=== PATIENT | female | born 1980 | race Caucasian/White ===

== ENCOUNTER 2016-08-05 00:06 | Inpatient (IN) ==
[2016-08-05] MEDS ORDERED: INSULIN REGULAR 100 UNIT/ML IV ONE ×2 (00:21→03:12)
[2016-08-05] MEDS ORDERED: MAGNESIUM SULF RIDER 2 GM in PREMIX 1 EACH IV PRN ×2 (00:21→03:12)
[2016-08-05] MEDS ORDERED: SODIUM CHLORIDE 0.9% 1,000 ML IV ONE ×2 (00:21→03:12)
[2016-08-05] MEDS ORDERED: DEXTROSE 50% 25 GM/50 ML VIAL IV PRN ×4 (00:21→03:12)
[2016-08-05] MEDS ORDERED: POTASSIUM CHLORIDE RIDER 10 MEQ in PREMIX 1 EACH IV PRN (00:21)
[2016-08-05] MEDS ORDERED: INSULIN REGULAR DRIP 100 ML IV SCH (00:30)
--- NOTE | 2016-08-05 00:34 | Emergency Department Note ---
Aimee Ramirez Emily, am scribing for, and in the presence of, Douglas Ansari MD 00: 30. Elan Ramirez Robert M, MD, personally performed the services described in this documentation, ascribed by Edna Yu in my presence, and it is both accurate and complete . Arrival - Arrival Chief Complaint: Non-Specific Stated Complaint: hyperglycemia ED Nursing Triage Note: patient to ED via EMS with c/o glucose being higher than 600. patient refused EMS transport earlier this evening and her glucose was 530 at that time. patient is AAOx3 but has kussmaul resp and mumbling when speaking. Mode of Arrival: Stretcher Limitations: No Limitations Source: Patient Time Seen by Provider: 08/05/16 00:18 - History of Present Illness HPI Narrative: Pt is a 36 y/o female who was brought to ED by EMS for further evaluation of glucose over 600 earlier this morning. Pt is delirious in ED and constantly saying she's thirsty. Pt is IDDM and brother is unsure who PCP. Pt has been vomiting and is fatigued in ED, in which mumbling when speaks. Pt is from [place], [place]. Onset (ago): hour(s) Consistency: constant Severity: moderate Severity scale (1-10): 7 Quality: aching Allergies/Adverse Reactions: Allergies Allergy/AdvReac Type Severity Reaction Status Date / Time No Known Allergies Allergy Unverified 08/05/16 00:12 Review of System - Review of System 12 point system: reviewed and no additional remarkable complaints except as stated - Review of System Constitutional: Absent: chills, fever Respiratory: Present: other (rapid breathing) Gastrointestinal: Present: vomiting. Absent: abdominal pain, diarrhea Endocrine: Present: fatigue, polydipsia Medical,Surgical,& Family Hx - Medical History Cardio: History of: Hypertension Endocrine: History of: Diabetes Mellitus (IDDM) - Social History Smoking Status: Unknown if ever smoked Frequency of Alcohol Use: Unknown Type of Drug Use: Unknown Exam Vital Signs: Vital Signs Temperature 97.3 F L 08/05/16 00:57 Pulse Rate 102 H 08/05/16 00:57 Respiratory Rate 34 H 08/05/16 00:57 Blood Pressure 124/69 08/05/16 00:57 O2 Sat by Pulse Oximetry 100 08/05/16 00:06 - General General appearance: alert, in distress, other (mumbles) - Head Head exam: Present: atraumatic, normocephalic - Eye Eye exam: Present: PERRL, EOMI - ENT ENT exam: Present: mucous membranes dry, other (chapped lips). Absent: mucous membranes moist - Neck Neck exam: Present: full ROM. Absent: tenderness - Chest Chest inspection: Present: symmetric chest wall rise. Absent: tenderness - Respiratory Respiratory exam: Present: normal lung sounds bilaterally, other (rapid shallow respirations). Absent: respiratory distress - Cardiovascular Cardiovascular exam: Present: tachycardia (mild), normal heart sounds - Abdominal Exam Abdominal exam: Present: soft. Absent: tenderness - Extremities Exam Extremities exam: Present: full ROM. Absent: tenderness, pedal edema - Neurological Exam Neurological exam: Present: alert, oriented X3, CN II-XII intact. Absent: motor sensory deficit - Skin Skin exam: Present: warm, dry Course - Consultations Consultation #1: Dr. Ricks is going to come see the patient. Time: 01:37 Results - Labs CBC & BMP: 08/05/16 00:40 08/05/16 00:40 Lab Results: I have reviewed the patients labs Labs: Lab Results WBC 32.2 T/CUMM (4-12) H 08/05/16 00:40 RBC 4.69 MC/CUMM (3.8-5.5) 08/05/16 00:40 Hgb 12.8 GM/DL (12.0-16.0) 08/05/16 00:40 Hct 47.5 VOL% (35.7-47.0) H 08/05/16 00:40 MCV 101.3 FL (87-102) 08/05/16 00:40 MCH 27 PG (27-34) 08/05/16 00:40 MCHC 26.9 GM/DL (32-36) L 08/05/16 00:40 RDW 15.0 % (9.3-17.3) 08/05/16 00:40 Plt Count 489 T/CUMM (130-400) H 08/05/16 00:40 MPV 11.0 FL (9.6-12.0) 08/05/16 00:40 Neut % (Auto) 77.3 % (38.7-73.9) H 08/05/16 00:40 Lymph % (Auto) 10.4 % (21.3-54.2) L 08/05/16 00:40 Schuyler % (Auto) 8.2 % (1.7-12.7) 08/05/16 00:40 Eos % (Auto) 0.1 % (0.00-10.9) 08/05/16 00:40 Baso % (Auto) 0.5 % (0.0-0.8) 08/05/16 00:40 Neut # (Auto) 24.8 10*3/uL (1.4-7.4) H 08/05/16 00:40 Lymph # (Auto) 3.4 10*3/uL (1.4-4.0) 08/05/16 00:40 Schuyler # (Auto) 2.7 10*3/uL (0.11-0.8) H 08/05/16 00:40 Eos # (Auto) 0.0 10*3/uL (0.0-0.87) 08/05/16 00:40 Baso # (Auto) 0.2 10*3/uL (0.0-0.2) 08/05/16 00:40 Immature Gran % 3.5 % 08/05/16 00:40 Nucleated RBC % 0.0 /100WBC 08/05/16 00:40 Immature Gran # 1.12 # 08/05/16 00:40 Nucleated RBCs # 0.00 10*3/uL 08/05/16 00:40 Sodium 120 MMOL/L (136-145) L* 08/05/16 00:40 Potassium 6.7 MMOL/L (3.5-5.1) H* 08/05/16 00:40 Chloride 80 MMOL/L (98-107) L 08/05/16 00:40 Carbon Dioxide 4 MMOL/L (21-32) L 08/05/16 00:40 Anion Gap 42.7 MMOL/L (5.0-15.0) H 08/05/16 00:40 BUN 45 MG/DL (7-18) H 08/05/16 00:40 Creatinine 2.00 MG/DL (0.55-1.02) H 08/05/16 00:40 GFR Calculation 39 ML/MIN 08/05/16 00:40 BUN/Creatinine Ratio 22.00 RATIO (6.00-20.00) H 08/05/16 00:40 Glucose 1263 MG/DL (74-106) H* 08/05/16 00:40 POC Glucose > 500 MG/DL (74-106) H* 08/05/16 00:13 Calculated Osmolality 318.2 MOS/KG (273-304) H 08/05/16 00:40 Calcium 8.4 MG/DL (8.5-10.1) L 08/05/16 00:40 Phosphorus 10.6 MG/DL (2.5-4.9) H 08/05/16 00:40 Magnesium 2.9 MG/DL (1.8-2.4) H 08/05/16 00:40 b-Hydroxybutyric mmol/L 4.4 mmol/L (0.0-0.6) H 08/05/16 00:40 ABG pH 6.892 (7.35-7.45) L* 08/05/16 01:15 ABG pCO2 7.7 MM HG (35-48) L* 08/05/16 01:15 ABG pO2 160.2 MM HG (80-95) H 08/05/16 01:15 ABG HCO3 1.4 MMOL/L (20-26) L 08/05/16 01:15 ABG Total CO2 1.7 MMOL/L (23-27) L 08/05/16 01:15 ABG O2 Saturation 97.6 % (95-100) 08/05/16 01:15 ABG Base Excess -30.1 MMOL/L (-2.5-2.5) L 08/05/16 01:15 FiO2 28.00 PERCENT (0-100) 08/05/16 01:15 - Diagnostic Findings Procedure: Chest x-ray: image reviewed by me (No acute process) Critical Care Time Critical Care Time: Yes Total Critical Care Time: 42 Disposition Clinical Impression: DKA (diabetic ketoacidoses), Type 1 diabetes Case discussed with: patient, patient's family Disposition: Disch To Home/Self Care Condition: Critical Time of Disposition: 01:38
[2016-08-05 01:10] LABS: Basophils # 0.2 10*3/uL (0.0-0.2); Basophils % 0.5 % (0.0-0.8); Eosinophils % 0.1 % (0.00-10.9); Hematocrit 47.5 VOL% (35.7-47.0); Hemoglobin 12.8 GM/DL (12.0-16.0); Immature Granulocytes % 3.5 %; Immature Granulocytes Absolute 1.12 #; Lymphocytes # 3.4 10*3/uL (1.4-4.0); Lymphocytes % 10.4 % (21.3-54.2); Mean Corpuscular HGB Conc 26.9 GM/DL (32-36); Mean Corpuscular Hemoglobin 27 PG (27-34); Mean Corpuscular Volume 101.3 FL (87-102); Monocytes # 2.7 10*3/uL (0.11-0.8); Monocytes % 8.2 % (1.7-12.7); Neutrophils # 24.8 10*3/uL (1.4-7.4); Neutrophils % 77.3 % (38.7-73.9); Platelet Count 489 T/CUMM (130-400); Red Blood Count 4.69 MC/CUMM (3.8-5.5); White Blood Count 32.2 T/CUMM (4-12)
[2016-08-05] MEDS ORDERED: INSULIN REGULAR 100 UNIT/ML ONE (01:16)
[2016-08-05] MEDS ORDERED: INSULIN REGULAR DRIP 100 ML IV ONE (01:17)
[2016-08-05 01:19] LABS: Allen Test Positive
[2016-08-05 01:21] LABS: ABG HCO3 1.4 MMOL/L (20-26); ABG Oxygen Saturation 97.6 % (95-100); ABG PO2 160.2 MM HG (80-95); ABG TCO2 1.7 MMOL/L (23-27)
[2016-08-05] MEDS ORDERED: SODIUM CHLORIDE 0.9% 1,000 ML IV SCH ×3 (01:21→07:24)
[2016-08-05 01:22] LABS: ABG Base Excess -30.1 MMOL/L (-2.5-2.5)
[2016-08-05 01:24] LABS: ABG PCO2 7.7 MM HG (35-48); ABG PH 6.892 (7.35-7.45)
[2016-08-05 01:26] LABS: Calcium 8.4 MG/DL (8.5-10.1); Magnesium 2.9 MG/DL (1.8-2.4); Phosphorous 10.6 MG/DL (2.5-4.9)
[2016-08-05 01:28] LABS: Osmolality,Calculated 318.2 MOS/KG (273-304)
[2016-08-05 01:29] LABS: Potassium 6.7 MMOL/L (3.5-5.1)
[2016-08-05] MEDS ORDERED: INSULIN LISPRO 100 UNIT/ML SUBCUT STA (01:32)
[2016-08-05 01:34] LABS: Lymphocytes 12 % (20-55); Myelocytes 1 %; Segmented Neutrophils 80 % (50-85)
[2016-08-05 01:35] LABS: Burr Cells 4+; Platelet Estimate Increased; Total Cells Counted 100
[2016-08-05] MEDS ORDERED: SODIUM BICARBONATE 50 MEQ/50 ML VIAL IV STA (01:39)
[2016-08-05] MEDS ORDERED: INSULIN LISPRO 100 UNIT/ML SUBCUT ONE (01:41)
[2016-08-05] MEDS ORDERED: SODIUM CHLORIDE 0.9% 1,000 ML IV STA (01:43)
[2016-08-05] MEDS ORDERED: SODIUM BICARBONATE 50 MEQ/50 ML SYRINGE IV ONE (01:46)
--- NOTE | 2016-08-05 02:36 | Hospitalist History & Physical ---
Assessment and Plan (1) DKA (diabetic ketoacidoses) Status: Acute Assessment and plan: On presentation pH was 6.8, PCO2 7.7, bicarb 4, potassium 6.7, glucose 1263 Status post 3 L IV fluids, 8 units IV regular insulin, 20 units subcutaneous lispro, 1 amp bicarb Admit to ICU for DKA protocol with continued IV fluids, IV insulin, electrolyte replacement as needed Unknown home medications, will have to obtain further history from patient when her mental status is improved No obvious trigger at this time, suspect noncompliance secondary to inability to afford medications Chest x-ray without infiltrate, check blood and urine cultures, flu swab. She may have contracted a viral illness as well from contacts At this time patient has a profound and critical metabolic acidosis for which she is adequately compensating with extreme hyperventilation. Consideration has been given to intubation and mechanical ventilation, however I am concerned that a ventilator would be unable to match her impressive spontaneous minute ventilation. At this point I think that caution is the better part of valor and that by treating her DKA her respiratory demand will improve. Will monitor closely for ventilatory fatigue but her respirations have already slowed after the interventions in the emergency department Current Visit: Yes Qualifiers: Diabetes mellitus type: type 1 (2) Hyperkalemia, transcellular shifts Status: Acute Assessment and plan: Artifactual secondary to acidosis, will likely need potassium replacement as hyperglycemia improves Current Visit: Yes (3) Hyponatremia Status: Acute Assessment and plan: Secondary to dehydration, hyperosmolarity from DKA/pseudohyponatremia Current Visit: Yes (4) Leukocytosis Status: Acute Assessment and plan: Favor stress response secondary to DKA, working up potential sources of infection Current Visit: Yes (5) Acute encephalopathy Status: Acute Assessment and plan: Secondary to multiple metabolic derangements, treat underlying cause monitoring for improvement Current Visit: Yes (6) Acute kidney injury Status: Acute Assessment and plan: No baseline records available at this time, on presentation creatinine was 2, BUN 45 Dehydration would be sufficient explanation for acute kidney injury, suspect that there may be some underlying diabetic nephrosclerosis, monitor for improvement and workup further as necessary Current Visit: Yes History of Present Illness Chief complaint: Altered mental status History of present illness: Ms. Beltran is a 36 year old female with history of type 1 diabetes, previous admission for DKA, that presented with a chief complaint of altered mental status by family. Patient is altered and unable to provide her own history, history is taken from discussion with emergency room providers as well as the patient's [id number] who was present at her bedside. Per family she was acting funny as long ago as as for duration of illness. Onset was abrupt with a rapidly progressive quality since that time. Today is when her condition seemed to worsen to the point that family called the ambulance at around 5 PM. The patient persuaded the first responders at that time that she did not need emergency care and in fact signed a form at that time releasing them. Several hours after that this evening her condition continued to worsen to the point that her speech should be very slurred, she would be disoriented, breathing very hard and heavy, and vomiting. She is from [place] and has never been to this hospital before, previously has gone to [place] for care. She has recently lost her job and health insurance and likely has been off of her insulin. Her family states that she often lies about being able to afford her medication and refuses their assistance. It is not known whether or not she had an infectious illness that preceded the onset of this DKA episode, however, family states that she does have sick contacts with a viral enteritis. In the emergency department she was given 3 L of IV fluids, 8 units of IV regular insulin, 20 units of subcutaneous lispro insulin, an amp of bicarb. By the time of my exam her respirations had decreased from 34 times a minute in triage to around 25 times per minute. Allergies Allergy/AdvReac Type Severity Reaction Status Date / Time No Known Allergies Allergy Unverified 08/05/16 00:12 Medical,Surgical,& Family Hx - Medical History Cardio: History of: Hypertension Endocrine: History of: Diabetes Mellitus (IDDM) - Family History Family History: Reports;: Family Cancer - Social History Smoking Status: Current every day smoker Have you smoked in the last 12 months: Yes Frequency of Alcohol Use: Occasionally Type of Drug Use: Unknown Functional capacity: independent ambulation ROS unobtainable: due to mental status Exam - Constitutional Vitals: Period Temp Pulse Resp BP Sys/Terrell Pulse Ox Last 24 Hr 97.3 F-97.3 F 102-102 32-34 124-124/69-69 100 General appearance: severe distress, morbidly obese, disheveled, other (Young white female) Exam: - Eye Eye exam: Present: EOMI. Absent: conjunctival injection, scleral icterus Pupils: Present: LUIS - ENT ENT exam: Present: normal external ear exam, normal oropharynx - Expanded ENT Exam Mouth exam: Present: Dry, with crusted vomitus - Neck Neck exam: Present: normal inspection. Absent: lymphadenopathy, thyromegaly - Respiratory Respiratory exam: Present: clear to auscultation bilaterally, Kussmaul respirations, significantly increased effort. Absent: rales, rhonchi, wheezes - Cardiovascular Cardiovascular exam: Present: Tachycardia and regular rhythm. Absent: diastolic murmur, systolic murmur - Expanded Cardiovascular Exam Peripheral pulses: 2+: posterior tibialis (L), posterior tibialis (R) - GI/Abdominal GI/Abdominal exam: Present: normal bowel sounds, soft, generalized tenderness. Absent: distended, hyperactive bowel sounds, hypoactive bowel sounds, organomegaly, rebound - Extremities Exam Extremities exam: Absent: edema - Neurological Exam Neurological exam: Present: Sleepy but alerts to firm touch, disoriented, paucity of speech - Skin Skin exam: Present: warm, dry, mottled. Absent: diaphoretic, rash Results - Labs CBC & BMP: 08/05/16 00:40 08/05/16 00:40 - Diagnostic Findings Procedure: Chest x-ray: report reviewed by me (Personally reviewed and found to be without acute infiltrate)
[2016-08-05] MEDS ORDERED: SODIUM CHLORIDE 0.9% IV PRN (03:12)
[2016-08-05] MEDS ORDERED: SODIUM PHOSPHATE IV PRN (03:12)
[2016-08-05] MEDS ORDERED: MAGNESIUM SULF RIDER 4 GM in PREMIX 1 EACH IV PRN (03:12)
[2016-08-05 03:43] LABS: Calcium 8.5 MG/DL (8.5-10.1)
[2016-08-05 03:45] LABS: Albumin 3.6 G/DL (3.4-5.0)
[2016-08-05 03:49] LABS: Bilirubin,Total 0.4 MG/DL (0.2-1.0); Total Protein 7.2 G/DL (6.4-8.3)
[2016-08-05 03:50] LABS: Osmolality,Calculated 318.1 MOS/KG (273-304)
[2016-08-05] MEDS: INSULIN REGULAR DRIP 100 ML IV SCH ×2 (03:50→19:10)
[2016-08-05 04:13] LABS: ABG Base Excess -27.3 MMOL/L (-2.5-2.5); ABG HCO3 6.8 MMOL/L (20-26); ABG Oxygen Saturation 97.6 % (95-100); Allen Test Positive
[2016-08-05 04:15] LABS: ABG PCO2 11.2 MM HG (35-48); ABG PH 7.064 (7.35-7.45)
[2016-08-05] MEDS: SODIUM CHLORIDE 0.9% 1,000 ML IV SCH ×2 (04:51→06:58)
[2016-08-05 05:22] LABS: Apearance,Urine Slightly Hazy (Clear); Bilirubin,Urine Negative (Negative); Blood, Urine Small mg/dL (Negative); Glucose,Urine (UA) >=500 mg/dL (Negative); Ketones,Urine 80 mg/dL (Negative); Mucus,Urine Occasional /LPF (Occasional); Nitrite,Urine Negative (Negative); Protein,Urine 30 MG/DL; RBC,Urine 4 /HPF (0-4); Squamous Epithelial Cell,Urine Occasional /HPF (0-10); Urine Color Yellow (Yellow); Urine Specific Gravity 1.016 (1.001-1.035); Urine Urobilinogen < 2.0 EU/DL (0.2-1.0); WBC,Urine 1 /HPF (0-6)
[2016-08-05 05:33] LABS: Basophils # 0.2 10*3/uL (0.0-0.2); Basophils % 0.5 % (0.0-0.8); Eosinophils % 0.1 % (0.00-10.9); Hematocrit 49.2 VOL% (35.7-47.0); Hemoglobin 14.4 GM/DL (12.0-16.0); Immature Granulocytes % 4.7 %; Immature Granulocytes Absolute 1.52 #; Lymphocytes # 3.6 10*3/uL (1.4-4.0); Lymphocytes % 11.2 % (21.3-54.2); Mean Corpuscular HGB Conc 29.3 GM/DL (32-36); Mean Corpuscular Hemoglobin 27 PG (27-34); Mean Platelet Volume 10.5 FL (9.6-12.0); Monocytes # 2.7 10*3/uL (0.11-0.8); Monocytes % 8.5 % (1.7-12.7); Neutrophils # 24.2 10*3/uL (1.4-7.4); Platelet Count 399 T/CUMM (130-400); Red Blood Count 5.29 MC/CUMM (3.8-5.5); Red Cell Distribution Width 14.1 % (9.3-17.3); White Blood Count 32.2 T/CUMM (4-12)
[2016-08-05 05:35] LABS: Magnesium 2.7 MG/DL (1.8-2.4); Phosphorous 8.2 MG/DL (2.5-4.9)
[2016-08-05 05:39] LABS: Band Neutrophils 3 % (0-10); Lymphocytes 18 % (20-55); Segmented Neutrophils 74 % (50-85); Total Cells Counted 100
[2016-08-05 05:41] LABS: Platelet Estimate Normal
[2016-08-05 06:14] LABS: ABG Base Excess -18.8 MMOL/L (-2.5-2.5); ABG HCO3 10.9 MMOL/L (20-26); ABG Oxygen Saturation 97.4 % (95-100); ABG PH 7.223 (7.35-7.45); ABG TCO2 6.9 MMOL/L (23-27)
[2016-08-05 06:16] LABS: ABG PCO2 18.8 MM HG (35-48)
[2016-08-05 06:30] LABS: Calcium 8.4 MG/DL (8.5-10.1); Osmolality,Calculated 316.1 MOS/KG (273-304); Potassium 5.2 MMOL/L (3.5-5.1)
[2016-08-05 07:30] LABS: Calcium 7.6 MG/DL (8.5-10.1); Osmolality,Calculated 309.3 MOS/KG (273-304); Potassium 4.1 MMOL/L (3.5-5.1)
--- NOTE | 2016-08-05 07:54 | XRay Report ---
Single view of the chest. Indication: Shortness of breath. The heart and mediastinal contours are unremarkable. The pulmonary vasculature is normal. There is no consolidation, pneumothorax, or pleural effusion. The osseous structures are unremarkable. Impression: No abnormality is seen. PROCEDURE INTERPRETED AT [facility] ([facility]) DEPARTMENT OF RADIOLOGY Final Report Signed by: Dr. Cristel Avery
[2016-08-05 08:34] LABS: ABG Base Excess -13.3 MMOL/L (-2.5-2.5); ABG HCO3 14.3 MMOL/L (20-26); ABG Oxygen Saturation 96.2 % (95-100); ABG PCO2 25.7 MM HG (35-48); ABG PH 7.283 (7.35-7.45); ABG PO2 81.7 MM HG (80-95); ABG TCO2 10.9 MMOL/L (23-27)
[2016-08-05] MEDS ORDERED: ENOXAPARIN 30 MG/0.3 ML SYRINGE SUBCUT SCH (09:00)
--- NOTE | 2016-08-05 09:48 | Hospitalist Progress Note ---
Assessment and Plan (1) DKA (diabetic ketoacidoses) Status: Acute Assessment and plan: Continuing with DKA protocol. Current Visit: Yes Qualifiers: Diabetes mellitus type: type 1 (2) Type 1 diabetes Status: Acute Assessment and plan: Hemoglobin A1c is 12. Current Visit: Yes Qualifiers: Chronic kidney disease stage: stage 2 (mild) (3) Hyperkalemia, transcellular shifts Status: Acute Current Visit: Yes (4) Leukocytosis Status: Acute Current Visit: Yes (5) Acute encephalopathy Status: Acute Current Visit: Yes (6) Acute kidney injury Status: Acute Assessment and plan: More likely due to volume depletion. Continue with IV fluids. BMP CBC in a.m. Current Visit: Yes Hospitalist: Subjective Interval history: Patient was admitted last night with DKA. Sugars have been above 750 and anion gap is noted to be 39. Respirations are stable hemodynamics are stable. At present she remains somnolent. Continuing with fluids and current management at this time. Chest x-ray unremarkable. Urinalysis is unremarkable for signs of infection. Exam - Constitutional Vitals: Period Temp Pulse Resp BP Sys/Terrell Pulse Ox Last 24 Hr 98.2 F-99.5 F 105-118 14-25 87-99/56-68 97-100 General appearance: normal weight - Head Head exam: Present: normal inspection - Respiratory Respiratory exam: Present: clear to auscultation bilaterally - Cardiovascular Cardiovascular exam: Present: regular rate and rhythm - GI/Abdominal GI/Abdominal exam: Present: normal bowel sounds - Extremities Exam Extremities exam: Present: normal inspection - Neurological Exam Neurological exam: Present: other (Patient remains somnolent. Team and to monitor closely.) - Skin Skin exam: Present: normal color, dry Results - Labs CBC & BMP: 08/05/16 04:22 08/05/16 06:55
[2016-08-05 11:15] LABS: ABG Base Excess -10.4 MMOL/L (-2.5-2.5); ABG HCO3 16.2 MMOL/L (20-26); ABG Oxygen Saturation 97.8 % (95-100); ABG PCO2 23.6 MM HG (35-48); ABG PH 7.364 (7.35-7.45); ABG PO2 86.1 MM HG (80-95)
[2016-08-05 11:51] LABS: Calcium 7.2 MG/DL (8.5-10.1); Osmolality,Calculated 302.6 MOS/KG (273-304); Potassium 3.8 MMOL/L (3.5-5.1)
[2016-08-05] MEDS: DEXT 5% NACL 0.45% KCL 20 MEQ 20 MEQ/1,000 ML BAG IV SCH ×3 (13:23→21:10)
[2016-08-05] MEDS ORDERED: SODIUM CHLOR 0.45% KCL 20 MEQ 20 MEQ/1,000 ML BAG IV SCH (15:30)
[2016-08-05 15:45] LABS: Calcium 7.4 MG/DL (8.5-10.1)
[2016-08-05 15:46] LABS: Osmolality,Calculated 306.7 MOS/KG (273-304); Potassium 3.6 MMOL/L (3.5-5.1)
[2016-08-05] MEDS: POTASSIUM CHLORIDE RIDER 10 MEQ in PREMIX 1 EACH IV PRN ×4 (16:20→21:09)
[2016-08-05] MEDS ORDERED: SODIUM CHLORIDE 0.45% 1,000 ML IV SCH (19:24)
[2016-08-05 19:37] LABS: Calcium 7.6 MG/DL (8.5-10.1)
[2016-08-05 19:38] LABS: Osmolality,Calculated 294.6 MOS/KG (273-304); Potassium 3.9 MMOL/L (3.5-5.1)
[2016-08-05] MEDS: NICOTINE 21 MG/24 HR PATCH TRANSDERM SCH (20:15)
[2016-08-05 23:33] LABS: Magnesium 1.9 MG/DL (1.8-2.4)
[2016-08-05 23:34] LABS: Calcium 7.5 MG/DL (8.5-10.1); Osmolality,Calculated 291.8 MOS/KG (273-304); Potassium 4.2 MMOL/L (3.5-5.1)
[2016-08-05] MEDS ORDERED: ONDANSETRON 4 MG/2 ML VIAL ONE (23:57)
[2016-08-06] MEDS: ONDANSETRON 4 MG/2 ML VIAL IV PRN ×2 (00:28→09:00)
[2016-08-06] MEDS: DEXT 5% NACL 0.45% KCL 20 MEQ 20 MEQ/1,000 ML BAG IV SCH ×2 (04:16→16:36)
[2016-08-06 05:43] LABS: Basophils % 0.1 % (0.0-0.8); Eosinophils % 0.2 % (0.00-10.9); Hematocrit 35.4 VOL% (35.7-47.0); Hemoglobin 11.7 GM/DL (12.0-16.0); Immature Granulocytes % 0.6 %; Immature Granulocytes Absolute 0.09 #; Lymphocytes # 3.2 10*3/uL (1.4-4.0); Lymphocytes % 21.4 % (21.3-54.2); Mean Corpuscular HGB Conc 33.1 GM/DL (32-36); Mean Corpuscular Hemoglobin 27 PG (27-34); Mean Corpuscular Volume 81.9 FL (87-102); Mean Platelet Volume 9.9 FL (9.6-12.0); Monocytes % 6.6 % (1.7-12.7); Neutrophils # 10.4 10*3/uL (1.4-7.4); Neutrophils % 71.1 % (38.7-73.9); Platelet Count 277 T/CUMM (130-400); Red Blood Count 4.32 MC/CUMM (3.8-5.5); Red Cell Distribution Width 14.6 % (9.3-17.3); White Blood Count 14.7 T/CUMM (4-12)
[2016-08-06 06:13] LABS: Calcium 7.8 MG/DL (8.5-10.1); Magnesium 2.1 MG/DL (1.8-2.4); Osmolality,Calculated 290.6 MOS/KG (273-304); Potassium 3.6 MMOL/L (3.5-5.1)
[2016-08-06] MEDS: POTASSIUM CHLORIDE RIDER 10 MEQ in PREMIX 1 EACH IV PRN ×2 (07:16→08:20)
[2016-08-06] MEDS: INSULIN REGULAR DRIP 100 ML IV SCH (08:02)
[2016-08-06] MEDS ORDERED: POTASSIUM PHOSPHATE 30 MMOL in SODIUM CHLORIDE 0.9% 250 ML IV ONE (08:02)
--- NOTE | 2016-08-06 08:19 | Hospitalist Progress Note ---
Assessment and Plan (1) DKA (diabetic ketoacidoses) Status: Acute Assessment and plan: Patient is a poorly controlled insulin dependent diabetic. She ran out of her medications a few days ago which caused her to go into diabetic ketoacidosis. She is currently receiving IV fluids with dextrose and potassium as well as an insulin drip with hourly Accu-Cheks. Her serum CO2 is 18 and her anion gap is still greater than 15. Repeat labs have been ordered. The patient reports an episode of nausea and vomiting last night. Does not appear that she is ready for oral intake and subcu insulin at this time. Further recommendations will depend on her response to therapy. Follow-up repeat chemistries later this morning. Current Visit: Yes Qualifiers: Diabetes mellitus type: type 1 Diabetes mellitus complication detail: without coma Qualified Code(s): E10.10 - Type 1 diabetes mellitus with ketoacidosis without coma (2) Acute kidney injury Status: Resolved Assessment and plan: This has resolved with IV fluid hydration. This was related to dehydration. Current Visit: Yes Hospitalist: Subjective Interval history: Patient seen and examined. She reports an episode of vomiting last night. She is admitted with diabetic ketoacidosis requiring IV insulin with hourly Accu- Cheks. Currently receiving insulin 5 U/h and dextrose IV fluids. Exam - Constitutional Vitals: Period Temp Pulse Resp BP Sys/Terrell Pulse Ox Last 24 Hr 99.3 F-100.3 F 99-122 14-28 98-133/60-98 96-98 Exam: Constitutional System: No distress. No tremulousness. Head: Normocephalic, atraumatic. Ears, Nose and Throat System: No pain or tenderness. No epistaxis or discharge Eyes System: Pupils equal, round, and reactive. Extraocular muscles intact. Neck: Supple, without adenopathy, No jugular venous distention. No thyromegaly, neck mass, or prior surgery apparent. Respiratory System: Chest clear to auscultation. Cardiovascular System: Heart with regular rate and rhythm. No murmur. GI System: Abdomen soft, nontender. Normo active bowel sounds present. Musculoskeletal System: limbs with no pedal edema. Full distal pulses. Neurological System: No discernable sensory deficit. No aphasia Psychiatric System: Conversation is rational Results - Labs CBC & BMP: 08/06/16 04:39 08/06/16 04:39 Lab Results: I have reviewed the past 24 hour labs
[2016-08-06] MEDS: ENOXAPARIN 40 MG/0.4 ML SYRINGE SUBCUT SCH (08:54)
[2016-08-06 09:08] LABS: Calcium 7.8 MG/DL (8.5-10.1); Magnesium 2.1 MG/DL (1.8-2.4); Osmolality,Calculated 289.6 MOS/KG (273-304); Potassium 3.5 MMOL/L (3.5-5.1)
[2016-08-06] MEDS ORDERED: IBUPROFEN 600 MG TABLET PO PRN (09:14)
[2016-08-06] MEDS ORDERED: METOCLOPRAMIDE 10 MG/2 ML VIAL IV PRN (10:03)
[2016-08-06] MEDS: NICOTINE 21 MG/24 HR PATCH TRANSDERM SCH (10:34)
[2016-08-06 13:15] LABS: Calcium 7.9 MG/DL (8.5-10.1); Magnesium 2.1 MG/DL (1.8-2.4); Osmolality,Calculated 287.7 MOS/KG (273-304); Potassium 3.8 MMOL/L (3.5-5.1)
[2016-08-06] MEDS ORDERED: DEXTROSE 50% 25 GM/50 ML VIAL IV PRN (13:59)
[2016-08-06] MEDS ORDERED: GLUCAGON 1 MG VIAL IM PRN (13:59)
[2016-08-06] MEDS: SODIUM CHLOR 0.45% KCL 20 MEQ 20 MEQ/1,000 ML BAG IV SCH ×2 (14:00→23:18)
[2016-08-06] MEDS: INSULIN NPH/REGULAR 70/30 100 UNIT/ML SUBCUT SCH ×2 (14:51→16:30)
[2016-08-06] MEDS: PROMETHAZINE 25 MG/1 ML VIAL IM PRN ×2 (15:24→23:23)
[2016-08-06] MEDS: FLUCONAZOLE 100 MG TABLET PO SCH (16:45)
[2016-08-06] MEDS: INSULIN LISPRO 100 UNIT/ML SUBCUT SCH ×2 (17:56→20:23)
[2016-08-07] MEDS: SODIUM CHLOR 0.45% KCL 20 MEQ 20 MEQ/1,000 ML BAG IV SCH (07:22)
[2016-08-07] MEDS: INSULIN LISPRO 100 UNIT/ML SUBCUT SCH (07:55)
[2016-08-07] MEDS: INSULIN NPH/REGULAR 70/30 100 UNIT/ML SUBCUT SCH (07:55)
[2016-08-07] MEDS: NICOTINE 21 MG/24 HR PATCH TRANSDERM SCH (08:00)
[2016-08-07] MEDS: ENOXAPARIN 40 MG/0.4 ML SYRINGE SUBCUT SCH (08:00)
[2016-08-07 08:34] LABS: Calcium 8.3 MG/DL (8.5-10.1); Magnesium 2.1 MG/DL (1.8-2.4); Potassium 4.6 MMOL/L (3.5-5.1)
[2016-08-07 09:14] VITALS: BP 154/95
--- NOTE | 2016-08-07 09:18 | Hospitalist Progress Note ---
Assessment and Plan (1) DKA (diabetic ketoacidoses) Status: Resolved Assessment and plan: Patient is a poorly controlled insulin dependent diabetic. She ran out of her medications a few days ago which caused her to go into diabetic ketoacidosis. The patient reports an episode of nausea and vomiting last night. She has been transitioned to subcutaneous insulin and sliding scale. She continues to receive IV fluids. Diabetic education was completed yesterday. Further recommendations will depend on her response to therapy. Current Visit: Yes Qualifiers: Diabetes mellitus type: type 1 Diabetes mellitus complication detail: without coma Qualified Code(s): E10.10 - Type 1 diabetes mellitus with ketoacidosis without coma (2) Acute kidney injury Status: Resolved Assessment and plan: This has resolved with IV fluid hydration. This was related to dehydration. Current Visit: Yes (3) Uncontrolled insulin dependent diabetes mellitus Status: Acute Assessment and plan: Diabetic education consult reviewed. Patient will need new prescriptions for cost-effective insulin therapies as an outpatient. Current Visit: Yes Hospitalist: Subjective Interval history: Patient seen and examined. She continues to have episodes of nausea overnight requiring Phenergan. She was taken off the insulin drip and started on subcu NovoLog. Exam - Constitutional Vitals: Period Temp Pulse Resp BP Sys/Terrell Pulse Ox Last 24 Hr 98.0 F-99.4 F 84-108 18-26 117-160/77-102 95-100 Exam: Constitutional System: No distress. No tremulousness. Head: Normocephalic, atraumatic. Ears, Nose and Throat System: No pain or tenderness. No epistaxis or discharge Eyes System: Pupils equal, round, and reactive. Extraocular muscles intact. Neck: Supple, without adenopathy, No jugular venous distention. No thyromegaly, neck mass, or prior surgery apparent. Respiratory System: Chest clear to auscultation. Cardiovascular System: Heart with regular rate and rhythm. No murmur. GI System: Abdomen soft, nontender. Normo active bowel sounds present. Musculoskeletal System: limbs with no pedal edema. Full distal pulses. Neurological System: No discernable sensory deficit. No aphasia Psychiatric System: Conversation is rational Results - Labs CBC & BMP: 08/06/16 04:39 08/07/16 08:02 Lab Results: I have reviewed the past 24 hour labs
--- NOTE | 2016-08-07 09:29 | Discharge Summary ---
Hospital Course - Hospital Course Hospital Course: Ms. Beltran is a 36 year old female with history of type 1 diabetes, previous admission for DKA, that presented with a chief complaint of altered mental status by family. Patient is altered and unable to provide her own history, history is taken from discussion with emergency room providers as well as the patient's [id number] who was present at her bedside. Per family she was acting funny as long ago as as for duration of illness. Onset was abrupt with a rapidly progressive quality since that time. Today is when her condition seemed to worsen to the point that family called the ambulance at around 5 PM. The patient persuaded the first responders at that time that she did not need emergency care and in fact signed a form at that time releasing them. Several hours after that this evening her condition continued to worsen to the point that her speech should be very slurred, she would be disoriented, breathing very hard and heavy, and vomiting. She is from [place] and has never been to this hospital before, previously has gone to [place] for care. She has recently lost her job and health insurance and likely has been off of her insulin. Her family states that she often lies about being able to afford her medication and refuses their assistance. It is not known whether or not she had an infectious illness that preceded the onset of this DKA episode, however, family states that she does have sick contacts with a viral enteritis. In the emergency department she was given 3 L of IV fluids, 8 units of IV regular insulin, 20 units of subcutaneous lispro insulin, an amp of bicarb. She was admitted to the intensive care unit for IV fluid hydration and IV insulin therapy. Her Slowly closed with improvement of her CO2 and improvement of her pH. She was later transitioned to subcutaneous insulin with Novolin 70/ 30 40 units subcutaneously 3 times daily with meals as well as sliding scale insulin. The patient received diabetic education prior to discharge. She was given a new glucometer. She verbalizes understanding of her discharge instructions and new medications. I sent her medications electronically to the [facility] in [place], - on [address]. - Time spent with patient Time with patient DS: Greater than 30 minutes (Total discharge time for this patient, including [id number] time, clinical documentation, medication reconciliation, and discharge planning was 39 minutes.) Diagnosis - Discharge Diagnosis (1) DKA (diabetic ketoacidoses) Status: Resolved (2) Acute kidney injury Status: Resolved (3) Uncontrolled insulin dependent diabetes mellitus Status: Acute Discharge Plan - Discharge Data Disposition: Disch To Home/Self Care Condition at Discharge: Stable Discharge Diet: diabetic diet Activity: resume usual activities as tolerated Hygiene: no restrictions Weight Bearing at Discharge: full weight bearing Contact your physician if you experience:: fever over 101, Nausea/Vomiting - Discharge Medications New Fluconazole Tab [Diflucan Tab] 100 mg PO DAILY #3 tablet Insulin Lispro [HumaLOG] See Protocol SUBCUT ACHS unit Insulin NPH/Regular 70/30 [HumuLIN 70/30] 40 unit SUBCUT TIDAC #1 vial Metoclopramide Tab [Reglan Tab] 5 mg PO Q8H #60 tablet Promethazine Tab [Phenergan Tab] 25 mg PO Q6H #20 tablet Nicotine 21 mg/24 Hr Patch [Nicoderm CQ 21 mg/24 hr Patch] 1 patch TRANSDERM DAILY patch Continue Losartan/Hydrochlorothiazide [Losartan-Hctz 50-12.5 mg Tab] 1 each PO DAILY Linaclotide [Linzess] 145 mcg PO BID Cholecalciferol (Vitamin D3) [Vitamin D3] 1,000 unit PO QOTHER DAY Pravastatin [Pravachol] 40 mg PO DAILY Discontinued Insulin Detemir [Levemir FlexPen] 65 unit SUBCUT BEDTIME Insulin Aspart [NovoLOG] 15 unit SUBCUT TID W/MEALS Hum Insulin NPH/Reg Insulin Hm [NovoLIN 70/30] 25 unit SUBCUT TID W/MEALS Insulin Degludec [Tresiba Flextouch U-200] 100 unit SQ BEDTIME - Follow Up or Referral - Forms/Instructions Exam - Constitutional Vitals: Period Temp Pulse Resp BP Sys/Terrell Pulse Ox Last 24 Hr 98.0 F-99.4 F 84-108 18-26 117-160/77-102 95-100 Discharge Results Procedures and tests throughout hospitalization: Pending Orders 08/05/16 04:22 Blood Culture Stat Labs on day of discharge: Labs from last 24 hours 08/07/16 08/07/16 08/06/16 08:02 07:38 20:10 Sodium 143 Potassium 4.6 Chloride 108 H Carbon Dioxide 21 Anion Gap 18.6 H BUN 7 Creatinine 0.50 L GFR Calculation 147 BUN/Creatinine Ratio 14.00 Glucose 370 H POC Glucose 344 H 250 H Calculated Osmolality 297.0 Calcium 8.3 L Magnesium 2.1 08/06/16 08/06/16 08/06/16 16:11 15:58 15:23 Sodium Potassium Chloride Carbon Dioxide Anion Gap BUN Creatinine GFR Calculation BUN/Creatinine Ratio Glucose POC Glucose 179 H 165 H 126 H Calculated Osmolality Calcium Magnesium 08/06/16 08/06/16 08/06/16 13:05 11:59 11:48 Sodium 145 Potassium 3.8 Chloride 113 H Carbon Dioxide 21 Anion Gap 14.8 BUN 8 Creatinine 0.60 GFR Calculation 138 BUN/Creatinine Ratio 13.00 Glucose 138 H POC Glucose 113 H 157 H Calculated Osmolality 287.7 Calcium 7.9 L Magnesium 2.1 08/06/16 08/06/16 08/06/16 11:06 10:19 09:08 Sodium Potassium Chloride Carbon Dioxide Anion Gap BUN Creatinine GFR Calculation BUN/Creatinine Ratio Glucose POC Glucose 172 H 225 H 140 H Calculated Osmolality Calcium Magnesium 08/06/16 08:12 Sodium 146 H Potassium 3.5 Chloride 115 H Carbon Dioxide 21 Anion Gap 13.5 BUN 10 Creatinine 0.60 GFR Calculation 138 BUN/Creatinine Ratio 16.00 Glucose 125 H POC Glucose Calculated Osmolality 289.6 Calcium 7.8 L Magnesium 2.1 Preliminary micro results at discharge 08/05/16 04:22 Blood Culture - Preliminary Blood No growth at 1 day 08/05/16 03:01 Blood Culture - Preliminary Blood No growth at 1 day 08/05/16 03:07 Blood Culture - Preliminary Blood No growth at 1 day DS: Provider Date of admission: 08/05/16 02:14 Primary care physician: . No PCP Attending physician on admission: Tigre Yi MD Consults: 08/05/16 03:12 Consult to [facility], Educator [CONS] Routine Reason for Manager Mba: Diabetes Education Initial Insulin Education Consult Comment: INSULIN EDUCATION 08/05/16 03:51 Consult to Pharmacy [CONS] Routine Reason for Pharmacy Consult: Adjust Meds Renal Funct 08/05/16 04:13 Consult to [facility], Educator [CONS] Routine Reason for Manager Mba: Diabetes Education Consult to Dietitian [CONS] Routine Reason for Dietitian: Diet Instruction 08/05/16 19:35 Consult to Case Mgmt/Social Srvs [CONS] Routine Reason for Case Mgmt/Social Srvs: Other Consult Comment: Pt lost job, has no health insurance, cannot afford insulin Discharging clinician: Tigre Yi MD Expected date of discharge: 08/07/16
[2016-08-07] MEDS: FLUCONAZOLE 100 MG TABLET PO SCH (10:07)
== END 2016-08-07 10:20 | disposition home or self-care (01) | DRG 637 ==
LOC: N.ED 00:06 → N.EDINP 02:14 → N.ICU 03:05
PROVIDERS: ADMIT Family Medicine; ATTEND Family Medicine

== ENCOUNTER 2019-09-18 20:10 | Inpatient (IN) ==
[~2019-09-18 20:10] MED LIST: LIDOCAINE 2% 5 ML VIAL ONE; propofoL 200 MG/20 ML VIAL IV ONE
[2019-09-18] MEDS ORDERED: SODIUM CHLORIDE 0.9% 1,000 ML IV STA ×2 (20:36→22:07)
[2019-09-18] MEDS ORDERED: PANTOPRAZOLE 40 MG VIAL IV STA (20:47)
[2019-09-18] MEDS ORDERED: INSULIN REGULAR 100 UNIT/ML IV STA (20:50)
[2019-09-18 21:00] LABS: Allen Test Positive
[2019-09-18 21:04] LABS: ABG HCO3 1.2 MMOL/L (20-26); ABG PO2 154.1 MM HG (80-95); ABG TCO2 1.4 MMOL/L (23-27)
[2019-09-18 21:09] LABS: ABG Oxygen Saturation 97.3 % (95-100)
[2019-09-18 21:10] LABS: Apearance,Urine CLEAR (Clear); Bacteria,Urine Occasional /HPF (Few); Bilirubin,Urine Negative (Negative); Blood, Urine Small mg/dL (Negative); Glucose,Urine (UA) >=500 mg/dL (Negative); Ketones,Urine 80 mg/dL (Negative); Mucus,Urine Occasional /LPF (Occasional); Nitrite,Urine Negative (Negative); Protein,Urine Negative; RBC,Urine 1 /HPF (0-4); Squamous Epithelial Cell,Urine Occasional /HPF (0-10); Urine Color Straw (Yellow); Urine Specific Gravity 1.017 (1.001-1.035); Urine Urobilinogen < 2.0 EU/DL (0.2-1.0); WBC,Urine 1 /HPF (0-6)
[2019-09-18 21:11] LABS: ABG PCO2 6.3 MM HG (35-48); ABG PH 6.885 (7.35-7.45)
[2019-09-18 21:15] LABS: Basophils # 0.1 10*3/uL (0.0-0.2); Basophils % 0.5 % (0.0-0.8); Hematocrit 46.4 VOL% (35.7-47.0); Hemoglobin 12.9 GM/DL (12.0-16.0); Immature Granulocytes % 2.9 %; Immature Granulocytes Absolute 0.67 #; Lymphocytes # 1.6 10*3/uL (1.4-4.0); Mean Corpuscular HGB Conc 27.8 GM/DL (32-36); Mean Corpuscular Volume 99.4 FL (87-102); Mean Platelet Volume 10.7 FL (9.6-12.0); Monocytes % 8.3 % (1.7-12.7); Neutrophils % 81.3 % (38.7-73.9); Platelet Count 431 T/CUMM (130-400); Red Blood Count 4.67 MC/CUMM (3.8-5.5); Red Cell Distribution Width 13.2 % (9.3-17.3); White Blood Count 23.4 T/CUMM (4-12)
[2019-09-18 21:18] LABS: Lymphocytes 8 % (20-55); Segmented Neutrophils 85 % (50-85); Total Cells Counted 100
[2019-09-18 21:19] LABS: Hypochromasia Slight; Polychromasia Slight
[2019-09-18 21:20] LABS: Macrocytosis Slight; Platelet Estimate Adequate
[2019-09-18] MEDS ORDERED: INSULIN REGULAR DRIP 100 ML IV PRN (21:20)
[2019-09-18 21:21] LABS: Barbiturates Screen,Urine Negative (Negative); Benzodiazepines Screen,Urine Negative (Negative); Cannabinoid Screen,Urine Negative (Negative); Opiate Screen,Urine Negative (Negative); Phencyclidine Screen,Urine Negative (Negative)
[2019-09-18 21:33] LABS: Alanine Aminotransferase 32 U/L (13-56); Albumin 3.3 G/DL (3.4-5.0); Alkaline Phosphatase 134 U/L (45-117); Aspartate Amino Transferase 40 U/L (0-37); Bilirubin,Total < 0.39 MG/DL (0.2-1.0); Blood Urea Nitrogen 30 MG/DL (7-18); Calcium 7.9 MG/DL (8.5-10.1); Estimated Glom Filtration Rate 42 ML/MIN; Osmolality,Calculated 296.3 MOS/KG (273-304); Total Protein 6.6 G/DL (6.4-8.3)
[2019-09-18 21:38] LABS: Glucose 1024 MG/DL (74-106)
[2019-09-18] MEDS ORDERED: SODIUM BICARBONATE 50 MEQ/50 ML VIAL IV STA (22:10)
[2019-09-18] MEDS ORDERED: SODIUM BICARBONATE 50 MEQ/50 ML VIAL IV ONE (22:13)
[2019-09-18] MEDS ORDERED: PIPERACILLIN/TAZOBACTAM 3,375 MG in SODIUM CHLORIDE 0.9% 100 ML IV STA (22:14)
[2019-09-18] MEDS ORDERED: PIPERACILLIN/TAZOBACTAM 3,375 MG VIAL IV ONE (22:15)
[2019-09-18] MEDS ORDERED: ALUM/MAG/SIMETH/LIDO VISC 1:1 30 ML BOTTLE PO STA (22:51)
[2019-09-19] MEDS ORDERED: SODIUM PHOSPHATE INJ 22.5 MMOL in SODIUM CHLORIDE 0.9% 250 ML IV PRN (00:09)
[2019-09-19] MEDS ORDERED: SODIUM BICARB INJ 100 MEQ in STERILE WATER INJ 400 ML IV PRN (00:09)
[2019-09-19] MEDS ORDERED: BISACODYL 5 MG TABLET PO PRN (00:09)
[2019-09-19] MEDS ORDERED: ACETAMINOPHEN 325 MG TABLET PO PRN (00:09)
[2019-09-19] MEDS ORDERED: MAGNESIUM SULF RIDER 4 GM in PREMIX 1 EACH IV PRN (00:09)
[2019-09-19] MEDS ORDERED: DEXTROSE 10% 250 ML BAG IV PRN ×2 (00:09)
[2019-09-19 00:34] LABS: ABG Base Excess -24.1 MMOL/L (-2.5-2.5); ABG HCO3 2.9 MMOL/L (20-26); ABG Oxygen Saturation 98.3 % (95-100); ABG PO2 184.7 MM HG (80-95); ABG TCO2 3.2 MMOL/L (23-27); Allen Test Positive
[2019-09-19] MEDS: INSULIN REGULAR DRIP 100 ML IV SCH ×2 (00:34→20:00)
[2019-09-19 00:37] LABS: ABG PCO2 9.2 MM HG (35-48); ABG PH 7.115 (7.35-7.45)
[2019-09-19 00:41] LABS: Calcium 7.7 MG/DL (8.5-10.1); Osmolality,Calculated 297.2 MOS/KG (273-304)
[2019-09-19] MEDS: SODIUM CHLORIDE 0.9% 1,000 ML IV SCH ×5 (00:57→15:32)
[2019-09-19] MEDS: PANTOPRAZOLE 40 MG VIAL IV SCH ×2 (01:02→09:33)
[2019-09-19] MEDS: ENOXAPARIN 40 MG/0.4 ML SYRINGE SUBCUT SCH (01:16)
[2019-09-19] MEDS: PROMETHAZINE 25 MG/1 ML VIAL IM PRN (01:57)
[2019-09-19 03:32] LABS: Basophils # 0.1 10*3/uL (0.0-0.2); Basophils % 0.2 % (0.0-0.8); Hematocrit 36.4 VOL% (35.7-47.0); Hemoglobin 11.6 GM/DL (12.0-16.0); Immature Granulocytes % 2.7 %; Immature Granulocytes Absolute 0.73 #; Lymphocytes # 2.7 10*3/uL (1.4-4.0); Mean Corpuscular HGB Conc 31.9 GM/DL (32-36); Mean Corpuscular Volume 86.1 FL (87-102); Mean Platelet Volume 10.5 FL (9.6-12.0); Monocytes % 8.9 % (1.7-12.7); Neutrophils % 78.2 % (38.7-73.9); Platelet Count 300 T/CUMM (130-400); Red Blood Count 4.23 MC/CUMM (3.8-5.5); Red Cell Distribution Width 12.9 % (9.3-17.3); White Blood Count 26.8 T/CUMM (4-12)
[2019-09-19 03:46] LABS: Calcium 7.6 MG/DL (8.5-10.1); Osmolality,Calculated 284.9 MOS/KG (273-304)
[2019-09-19 05:16] LABS: Band Neutrophils 3 % (0-10); Lymphocytes 13 % (20-55); Platelet Estimate Normal; Segmented Neutrophils 74 % (50-85); Total Cells Counted 100
[2019-09-19 07:24] LABS: Apearance,Urine Slightly Hazy (Clear); Bilirubin,Urine Negative (Negative); Blood, Urine Small mg/dL (Negative); Glucose,Urine (UA) >=500 mg/dL (Negative); Ketones,Urine 80 mg/dL (Negative); Mucus,Urine Occasional /LPF (Occasional); Nitrite,Urine Negative (Negative); Protein,Urine Negative; RBC,Urine 4 /HPF (0-4); Squamous Epithelial Cell,Urine Occasional /HPF (0-10); Urine Color Yellow (Yellow); Urine Specific Gravity 1.018 (1.001-1.035); Urine Urobilinogen < 2.0 EU/DL (0.2-1.0); WBC,Urine 2 /HPF (0-6)
[2019-09-19 08:44] LABS: Calcium 7.4 MG/DL (8.5-10.1); Osmolality,Calculated 284.1 MOS/KG (273-304)
[2019-09-19] MEDS ORDERED: DEXT 5% NACL 0.9% KCL 20 MEQ 20 MEQ/1,000 ML BAG IV SCH ×2 (10:00→12:00)
[2019-09-19] MEDS: SODIUM CHLOR 0.9% KCL 20 MEQ 20 MEQ/1,000 ML BAG IV SCH ×3 (10:55→18:37)
[2019-09-19 12:37] LABS: Calcium 7.3 MG/DL (8.5-10.1)
[2019-09-19] MEDS: DEXT 5% NACL 0.9% KCL 20 MEQ 20 MEQ/1,000 ML BAG IV SCH (15:37)
[2019-09-19] MEDS: LOSARTAN/HCTZ 50-12.5 MG TABLET PO SCH (15:37)
[2019-09-19] MEDS: SODIUM CHLORIDE 0.45% 1,000 ML IV SCH (16:27)
[2019-09-19 16:58] LABS: Calcium 7.8 MG/DL (8.5-10.1); Osmolality,Calculated 279.8 MOS/KG (273-304)
[2019-09-19] MEDS: DEXT 5% NACL 0.45% KCL 20 MEQ 20 MEQ/1,000 ML BAG IV SCH (17:30)
[2019-09-19 21:28] LABS: Calcium 7.4 MG/DL (8.5-10.1); Osmolality,Calculated 278.5 MOS/KG (273-304)
[2019-09-20 00:56] LABS: Osmolality,Calculated 273.7 MOS/KG (273-304)
[2019-09-20] MEDS: POTASSIUM CHLORIDE RIDER 10 MEQ in PREMIX 1 EACH IV PRN ×5 (01:22→08:24)
[2019-09-20] MEDS: DEXT 5% NACL 0.45% KCL 20 MEQ 20 MEQ/1,000 ML BAG IV SCH ×2 (01:24→10:03)
[2019-09-20 04:00] LABS: Basophils % 0.2 % (0.0-0.8); Eosinophils % 0.2 % (0.00-10.9); Hematocrit 33.7 VOL% (35.7-47.0); Hemoglobin 10.9 GM/DL (12.0-16.0); Immature Granulocytes % 0.4 %; Immature Granulocytes Absolute 0.04 #; Lymphocytes # 0.9 10*3/uL (1.4-4.0); Mean Corpuscular HGB Conc 32.3 GM/DL (32-36); Mean Corpuscular Volume 84.7 FL (87-102); Mean Platelet Volume 9.5 FL (9.6-12.0); Monocytes % 2.9 % (1.7-12.7); Neutrophils % 88.3 % (38.7-73.9); Platelet Count 232 T/CUMM (130-400); Red Blood Count 3.98 MC/CUMM (3.8-5.5); Red Cell Distribution Width 13.5 % (9.3-17.3); White Blood Count 11.3 T/CUMM (4-12)
[2019-09-20 04:14] LABS: Calcium 7.9 MG/DL (8.5-10.1); Osmolality,Calculated 271.2 MOS/KG (273-304)
[2019-09-20] MEDS: DEXT 5% NACL 0.9% KCL 20 MEQ 20 MEQ/1,000 ML BAG IV SCH ×2 (05:23→08:23)
[2019-09-20] MEDS: PROMETHAZINE 25 MG/1 ML VIAL IM PRN ×2 (05:23→21:34)
[2019-09-20] MEDS: ENOXAPARIN 40 MG/0.4 ML SYRINGE SUBCUT SCH ×2 (05:41→23:46)
[2019-09-20] MEDS: SODIUM CHLOR 0.9% KCL 20 MEQ 20 MEQ/1,000 ML BAG IV SCH ×2 (06:09→08:21)
[2019-09-20] MEDS: SODIUM CHLORIDE 0.45% 1,000 ML IV SCH (08:20)
[2019-09-20] MEDS: INSULIN REGULAR DRIP 100 ML IV SCH (08:21)
[2019-09-20] MEDS: PANTOPRAZOLE 40 MG VIAL IV SCH (08:22)
[2019-09-20] MEDS: SIMVASTATIN 20 MG TABLET PO SCH (08:59)
[2019-09-20] MEDS: LOSARTAN/HCTZ 50-12.5 MG TABLET PO SCH (08:59)
[2019-09-20] MEDS: ONDANSETRON 4 MG/2 ML VIAL IV PRN (09:00)
[2019-09-20 09:27] LABS: Osmolality,Calculated 272.8 MOS/KG (273-304)
[2019-09-20] MEDS: MAGNESIUM SULF RIDER 2 GM in PREMIX 1 EACH IV PRN (09:30)
[2019-09-20] MEDS ORDERED: GLUCAGON 1 MG VIAL IM PRN (10:08)
[2019-09-20] MEDS: FLUCONAZOLE INJ 400 MG in PREMIX 1 EACH IV SCH (11:56)
[2019-09-20] MEDS: INSULIN NPH/REGULAR 70/30 100 UNIT/ML SUBCUT SCH ×2 (11:57→16:15)
[2019-09-20] MEDS: INSULIN LISPRO 100 UNIT/ML SUBCUT SCH ×3 (11:57→21:20)
[2019-09-20] MEDS: NYSTATIN 500,000 UNIT/5 ML UDCUP SWISH/SWAL SCH ×3 (13:38→21:20)
[2019-09-20] MEDS: NICOTINE 21 MG/24 HR PATCH TRANSDERM PRN (21:20)
[2019-09-21] MEDS: INSULIN LISPRO 100 UNIT/ML SUBCUT SCH ×4 (07:52→20:57)
[2019-09-21] MEDS: INSULIN NPH/REGULAR 70/30 100 UNIT/ML SUBCUT SCH ×3 (07:53→16:44)
[2019-09-21] MEDS: LOSARTAN/HCTZ 50-12.5 MG TABLET PO SCH (08:26)
[2019-09-21] MEDS: NYSTATIN 500,000 UNIT/5 ML UDCUP SWISH/SWAL SCH ×4 (08:26→20:58)
[2019-09-21] MEDS: SIMVASTATIN 20 MG TABLET PO SCH (08:26)
[2019-09-21] MEDS: PANTOPRAZOLE 40 MG VIAL IV SCH (08:26)
[2019-09-21] MEDS: guaiFENesin 200 MG/10 ML UDCUP PO PRN ×2 (11:53→20:58)
[2019-09-21] MEDS: FLUCONAZOLE INJ 400 MG in PREMIX 1 EACH IV SCH (11:53)
[2019-09-21] MEDS: ONDANSETRON 4 MG/2 ML VIAL IV PRN (16:47)
[2019-09-21] MEDS: NICOTINE 21 MG/24 HR PATCH TRANSDERM PRN (20:57)
[2019-09-22] MEDS: ONDANSETRON 4 MG/2 ML VIAL IV PRN (00:09)
[2019-09-22 06:55] LABS: Basophils % 0.4 % (0.0-0.8); Eosinophils % 0.3 % (0.00-10.9); Hematocrit 34.8 VOL% (35.7-47.0); Hemoglobin 11.4 GM/DL (12.0-16.0); Immature Granulocytes % 0.3 %; Immature Granulocytes Absolute 0.02 #; Lymphocytes # 1.5 10*3/uL (1.4-4.0); Lymphocytes % 22.5 % (21.3-54.2); Mean Corpuscular HGB Conc 32.8 GM/DL (32-36); Mean Corpuscular Volume 82.3 FL (87-102); Mean Platelet Volume 9.8 FL (9.6-12.0); Monocytes % 10.2 % (1.7-12.7); Neutrophils % 66.3 % (38.7-73.9); Platelet Count 197 T/CUMM (130-400); Red Blood Count 4.23 MC/CUMM (3.8-5.5); Red Cell Distribution Width 13.7 % (9.3-17.3); White Blood Count 6.8 T/CUMM (4-12)
[2019-09-22 07:23] LABS: Calcium 8.5 MG/DL (8.5-10.1)
[2019-09-22] MEDS: INSULIN NPH/REGULAR 70/30 100 UNIT/ML SUBCUT SCH ×2 (07:25→13:13)
[2019-09-22] MEDS: INSULIN LISPRO 100 UNIT/ML SUBCUT SCH ×2 (07:39→13:14)
[2019-09-22] MEDS: MAGNESIUM SULF RIDER 2 GM in PREMIX 1 EACH IV PRN (08:00)
[2019-09-22] MEDS: PANTOPRAZOLE 40 MG VIAL IV SCH (08:00)
[2019-09-22] MEDS ORDERED: LACTATED RINGERS 1,000 ML IV SCH (08:00)
[2019-09-22] MEDS: NYSTATIN 500,000 UNIT/5 ML UDCUP SWISH/SWAL SCH ×2 (08:04→13:12)
[2019-09-22] MEDS ORDERED: POTASSIUM CHLORIDE 20 MEQ TABLET PO SCH (09:00)
[2019-09-22] MEDS ORDERED: LOSARTAN 50 MG TABLET PO SCH (09:00)
[2019-09-22] MEDS: SIMVASTATIN 20 MG TABLET PO SCH (13:12)
[2019-09-22] MEDS: FLUCONAZOLE INJ 400 MG in PREMIX 1 EACH IV SCH (13:20)
[2019-09-22 13:34] VITALS: BP 145/90
== END 2019-09-22 15:12 | disposition home or self-care (01) | DRG 420 ==
LOC: EDBD → EDUNIT# → N.ED 20:10 → SUATTDRO 22:50 → N.EDINP 22:50 → N.ICU 09-19 00:05
PROVIDERS: ADMIT Internal Medicine; ATTEND Internal Medicine Cardiovascular Disease